=== PATIENT | male | born 1955 | race Caucasian/White ===

== ENCOUNTER → 2016-10-21 | Outpatient (CLI) | payer BC ==
--- NOTE | 2016-10-21 12:46 | US ---
EXAMINATION TYPE: US venous doppler duplex LE LT DATE OF EXAM: 10/21/2016 12:35 PM COMPARISON: NONE CLINICAL HISTORY: M79.672 PAIN IN LT FOOT,S92.405D FX LT GREAT TOE. Left foot pain s/p foot fracture SIDE PERFORMED: Left TECHNIQUE: The lower extremity deep venous system is examined utilizing real time linear array sonog aruna with graded compression, doppler sonography and color-flow sonography. VESSELS IMAGED: External Iliac Vein (EIV) Common Femoral Vein Deep Femoral Vein Greater Saphenous Vein * Femoral Vein Popliteal Vein Small Saphenous Vein * Proximal Calf Veins (* superficial vessels) No popliteal lesion is seen. Left Leg: Negative for DVT, please note PTV's imaged and wnl Results called to Elizabeth at 's office at time of exam IMPRESSION: THIS EXAMINATION IS NEGATIVE FOR DVT WITHIN THE LEFT LEG.
== END | disposition home or self-care (01) ==
LOC: RADUSWWP 12:12
PROVIDERS: ATTEND Orthopaedic Surgery
DX: I80.9 Phlebitis and thrombophlebitis of unspecified site (principal); M79.672 Pain in left foot; S92.405D Nondisplaced unspecified fracture of left great toe, subsequent encounter for fracture with routine healing; X58.XXXD Exposure to other specified factors, subsequent encounter; F17.210 Nicotine dependence, cigarettes, uncomplicated

== ENCOUNTER → 2017-03-18 | Outpatient (CLI) | payer BC | LOC: LABWHC1 10:58 | PROVIDERS: ATTEND Orthopaedic Surgery | DX: S82.62XD Displaced fracture of lateral malleolus of left fibula, subsequent encounter for closed fracture with routine healing (principal) | CPT/HCPCS: 36415; 93005 ==

== ENCOUNTER → 2018-12-06 | Outpatient (CLI) | payer OTHER ==
--- NOTE | 2018-12-06 14:10 | CTL ---
EXAMINATION TYPE: CT Low Dose Lung DATE OF EXAM ORDERED: 12/06/2018 HISTORY: Personal history of tobacco abuse. Lung cancer screening CT DLP: 79.[address] CTDI: 2.2 mGy Automated exposure control for dose reduction was used. SCREENING VISIT: Initial COMPARISON: None TECHNIQUE: Low dose computed tomography scan was performed through the chest at 1 mm thick sections a nd reconstructed images in the coronal plane at [address] DIAGNOSTIC QUALITY: Satisfactory FINDINGS: LUNG NODULES: Present, detailed below: There is a 6 mm solid pulmonary nodule in the right upper lobe on series 4 image 85. There is a calcified benign granulomata within the medial left upper lobe on image 84. Calcified donald gn granuloma within the left upper lobe is also seen posterior laterally on image 61. There is a solid 3 mm pulmonary nodule along the interlobar fissure on series 4 image 161 within the right middle lobe. There is a subsolid vague pulmonary nodule in the left lung apex on image 54 measuring 3 mm. LUNGS: COPD: Severity: Mild Fibrosis: Severity: None Lymph nodes: Nonenlarged Other findings: There is an elongated focal pleural thickening anteriorly along the right middle lobe . Focal pleural thickening and elongated probable scar are seen on series 4 image 87 through 92 along t he right posterior lateral upper lobe. There is minimal dependent bibasilar subsegmental atelectasis. Very minimal peribronchial cuffing may be on the basis of reactive airway disease in this patient wit h underlying COPD with infectious etiology less likely. RIGHT PLEURAL SPACE: Effusion: None Calcification: None Thickening: Minimal along the right middle lobe as marked on image 147. Pneumothorax: None LEFT PLEURAL SPACE: Effusion: None Calcification: None Thickening: None Pneumothorax: None HEART: Heart Size: Nonenlarged Coronary calcification: Severe three-vessel Pericardial effusion: None OTHER FINDINGS: Upper abdomen: Unremarkable unenhanced morphology of the limited upper abdomen. Bony thorax: Moderate degenerative changes of the mid to lower thoracic spine and mild degenerative c hanges of the upper thoracic spine. Supraclavicular region: Unremarkable IMPRESSION: 1. Bilateral pulmonary nodules measuring up to 6 mm on the right. This qualifies as a probably benign finding-LUNG RADS 3-six-month follow-up low dose CT is recommended. 2. Severe three-vessel coronary artery calcifications, a marker of coronary artery disease. FOLLOW UP CT CHEST RECOMMENDATION: Six-month low dose CT thorax CT LUNG RAD: Lung-Rad 3 Probably Benign
== END | disposition home or self-care (01) ==
LOC: RADCTMAIN 13:21
PROVIDERS: ATTEND Family Medicine
DX: Z12.2 Encounter for screening for malignant neoplasm of respiratory organs (principal); R91.8 Other nonspecific abnormal finding of lung field; I25.10 Atherosclerotic heart disease of native coronary artery without angina pectoris; Z87.891 Personal history of nicotine dependence

== ENCOUNTER 2018-12-18 06:17 | Day surgery (SDC) | payer OTHER ==
[~2018-12-18 06:17] MED LIST: DEXAMETHASONE SOD PHOSPHATE 10 MG/ML 1 ML VIAL IV ONE; HEPARIN SODIUM,PORCINE 5,000 UNIT/ML 1 ML VIAL SQ ONE; LACTATED RINGERS 1,000 ML IV SCH; MIDAZOLAM 2 MG/2 ML VIAL IV PRN; ONDANSETRON 4 MG/2 ML VIAL IVP ONE; SCOPOLAMINE 1.5MG/72HR PATCH TRANSDERM ONE; ceFAZolin IN SWFI 2 GM/20 ML SYRINGE IVP ONE
[2018-12-18] MEDS ORDERED: LACTATED RINGERS 1,000 ML IV ONE ×3 (07:06→10:50)
[2018-12-18] MEDS ORDERED: LIDOCAINE 1% 20 ML VIAL (10MG/ML) FOR IV START INTRADERMA ONE (07:07)
--- NOTE | 2018-12-18 07:46 | P.GSHP ---
History of Present Illness H&P Date: 12/18/18 Chief Complaint: Left inguinal hernia This is a 63-year-old male who presents today for laparoscopic robotic-assisted repair of left inguinal hernia. Patient developed a tender mass left groin. Past Medical History Past Medical History: No Reported History Additional Past Medical History / Comment(s): SMOKER History of Any Multi-Drug Resistant Organisms: None Reported Additional Past Surgical History / Comment(s): ORIF ANKLE LEFT @ OA Past Anesthesia/Blood Transfusion Reactions: No Reported Reaction Past Psychological History: No Psychological Hx Reported Smoking Status: Current every day smoker Past Alcohol Use History: Occasional Additional Past Alcohol Use History / Comment(s): SMOKED FOR 30 YRS, 1PPD Past Drug Use History: None Reported - Past Family History Mother Family Medical History: No Reported History Medications and Allergies Home Medications Medication Instructions Recorded Confirmed Type Calcium Carbonate [Calcium] 1 tab PO DAILY 12/13/18 12/13/18 History Cholecalciferol (Vitamin D3) 1 tab PO DAILY 12/13/18 12/13/18 History [Vitamin D3] Allergies Allergy/AdvReac Type Severity Reaction Status Date / Time No Known Allergies Allergy Verified 12/13/18 10:17 Surgical - Exam Vital Signs Temp Pulse Resp BP Pulse Ox 97.8 F 69 18 143/69 99 12/18/18 06:43 12/18/18 06:43 12/18/18 06:43 12/18/18 06:43 12/18/18 06:43 - General well developed, well nourished, no distress - Eyes PERRL - ENT normal pinna - Neck no masses - Respiratory normal expansion - Cardiovascular Rhythm: regular - Abdomen Abdomen: soft, non tender Hernia: inguinal (Reducible left inguinal hernia) Assessment and Plan Assessment: Left and one hernia. We'll perform laparoscopic robotic-assisted repair.
[2018-12-18] MEDS ORDERED: fentaNYL (PF) 50 MCG/ML 2 ML AMP ONE (07:51)
[2018-12-18] MEDS ORDERED: HYDROmorphone (PF) 1 MG/ML ONE (07:51)
[2018-12-18] MEDS ORDERED: ePHEDrine SULFATE/0.9% NACL/PF 50 MG/5 ML SYRINGE IV ONE (07:51)
[2018-12-18] MEDS ORDERED: GLYCOPYRROLATE 0.2 MG/ML 2 ML VIAL ONE (07:51)
[2018-12-18] MEDS ORDERED: LIDOCAINE 1% INJ 10MG/ML (20 ML MDV) ONE (07:51)
[2018-12-18] MEDS ORDERED: MIDAZOLAM 2 MG/2 ML VIAL ONE (07:51)
[2018-12-18] MEDS ORDERED: PROPOFOL 10 MG/ML 20 ML VIAL IV ONE (07:51)
[2018-12-18] MEDS ORDERED: NEOSTIGMINE 1 MG/ML 10 ML VIAL ONE (07:51)
[2018-12-18] MEDS ORDERED: KETOROLAC 30 MG/ML 1 ML VIAL ONE (07:51)
[2018-12-18] MEDS ORDERED: ROCURONIUM BROMIDE 10 MG/ML 10 ML VIAL IV ONE (07:51)
--- NOTE | 2018-12-18 07:54 | P.OP ---
Date of Procedure: 12/18/18 Preoperative Diagnosis: GI bleed Postoperative Diagnosis: Mild diverticulosis Internal hemorrhoids Procedure(s) Performed: Colonoscopy Anesthesia: MAC Surgeon: Octaviano Coronado Pathology: none sent Condition: stable Disposition: PACU Description of Procedure: The patient's placed on the endoscopy table in the lateral position. He received IV sedation. Digital rectal exam was performed which revealed a few internal hemorrhoids. The flexible colonoscope was then placed patient anus and passed throughout the entire colon. The ileocecal valve was visualized. The cecum, ascending and transverse colon. No. The descending colon appeared normal. In the sigmoid colon there was a few scattered diverticula. Scope summer back the rectum this purpose withdrawn. Anus and there were a few internal hemorrhoids. There is no incision any active GI bleed. It is presumed that his bleeding is due to internal hemorrhoids.
[2018-12-18] MEDS ORDERED: BUPIVACAIN-EPI 0.25%-1:200,000 30 ML VIAL SQ ONE (08:26)
[2018-12-18 09:22] VITALS: TEMP 96.9
[2018-12-18 09:23] VITALS: RESP 16
--- NOTE | 2018-12-18 09:33 | P.OP ---
Date of Procedure: 12/18/18 Preoperative Diagnosis: Left inguinal hernia Postoperative Diagnosis: Bilateral inguinal hernia Procedure(s) Performed: Laparoscopic robotic-assisted repair of bilateral inguinal hernia Anesthesia: MIRACLE Surgeon: Octaviano Coronado Pathology: none sent Condition: stable Disposition: PACU Description of Procedure: The patient's placed on the operating table in the supine position. The patient received general anesthesia. The patient's abdomen was prepped and draped in usual sterile fashion. The skin was anesthetized 1% local Xylocaine at the incision sites. Using an 11 blade a skin incision was made at the umbilicus. The fascia was grasped with a Love and then the peritoneal cavity was entered with the Veress needle. Position of the Veress needle was confirmed with a positive drop test. After adequate insufflation a 5 mm trocar was placed into the peritoneal cavity. The Laparoscope was placed the peritoneal cavity. And a robotic 8 mm trocar was placed in the right lateral position and then another 8 mm robotic trochars placed in the left lateral position. The original 5 mm trocar was exchanged for a 12 mm trocar. The patient was placed in reverse Trendelenburg and then the patient was docked to the robot. The patient was noted to have a large left internal hernia and a small right inguinal hernia Next the peritoneum over top of the left inguinal hernia was incised and then using blunt and sharp dissection and electrocautery the hernia sac was dissected free from the floor of the inguinal canal. The hernia sac was completely reduced into the peritoneal cavity. And then using the [employer] information director mesh the hernia was repaired. The peritoneum was then sutured with 20V lock suture. Next the peritoneum over top of the right inguinal hernia was incised and then using blunt and sharp dissection and electrocautery the hernia sac was dissected free from the floor of the inguinal canal. The hernia sac was completely reduced into the peritoneal cavity. And then using the [employer] information director mesh the hernia was repaired. The peritoneum was then sutured with 20V lock suture. The patient was then undocked the robot. The needle was withdrawn from the peritoneal cavity. The umbilical trocar site was closed with 0 Ethibond suture. The skin was closed interrupted 3-0 Monocryl suture. Dermabond dressing was applied. Patient was sent to recovery in stable condition.
[2018-12-18] MEDS: HYDROmorphone 0.5 MG/0.5 ML SYRINGE IVP PRN ×2 (09:39→09:41)
[2018-12-18] MEDS ORDERED: ONDANSETRON 4 MG/2 ML VIAL IVP ONE (09:39)
[2018-12-18 10:52] VITALS: BP 112/64; PULSE 68
== END 2018-12-18 11:18 | disposition home or self-care (01) ==
LOC: OR 06:17
PROVIDERS: ATTEND Surgery
DX: K40.20 Bilateral inguinal hernia, without obstruction or gangrene, not specified as recurrent (principal); F17.200 Nicotine dependence, unspecified, uncomplicated
CPT/HCPCS: 49650; C1781; J2250; J1644; J1100; J2710; J2405; J2001; J3010; J1885; J1170 ×2; J2704; J0690

== ENCOUNTER → 2020-05-11 | Outpatient (CLI) | payer MEDICARE, OTHER ==
[2020-05-11 11:00] LABS: African American GFR (CKD) >90 (>60 ml/min/1.73 sqM); Blood Urea Nitrogen 5 mg/dL (9-20); Non-African American GFR(CKD) >90 (>60 ml/min/1.73 sqM)
--- NOTE | 2020-05-11 13:11 | CT ---
EXAMINATION TYPE: CT chest w con DATE OF EXAM: 05/11/2020 COMPARISON: CT low dose lung screening 12/06/1989 HISTORY: Pulmonary Nodule CT DLP: 225.9 mGycm Automated exposure control for dose reduction was used. CONTRAST: CT scan of the chest is performed with IV Contrast, patient injected with 100 mL of Isovue 300. FINDINGS: LUNGS: There is an unchanged left upper lobe 2 mm pulmonary nodule (4:14), which was somewhat better appreciated on 12/06/2018 CT comparison. There is an unchanged 6 mm solid pulmonary nodule of the righ t upper lobe (4:19). The 3 mm perifissural nodule of the right middle lobe is not seen on current exa mination. Calcified granulomas. Atelectasis and/or scarring of the posterolateral pleura of the right upper lobe (4:20) is unchanged. Lungs are grossly clear. No new concerning parenchymal mass or nodul e identified. No pleural effusion. No pneumothorax. The tracheobronchial tree is patent. MEDIASTINUM/SOFT TISSUES: No axillary, hilar, or mediastinal lymphadenopathy greater than 1 cm. Cardi ac size is normal. Calcified coronary artery disease. No pericardial effusion. No thoracic aortic ane urysm. UPPER ABDOMEN: No adrenal nodule. Incompletely visualized simple appearing left renal cyst. OSSEOUS: Degenerative changes of the spine. IMPRESSION: Bilateral pulmonary nodules, measuring up to 6 mm on the right, are unchanged versus 12/06/2018 CT com parison, and likely benign. Recommend annual CT low dose lung screening.
== END | disposition home or self-care (01) ==
LOC: RADCTMAIN 10:19
PROVIDERS: ATTEND Family Medicine
DX: R91.1 Solitary pulmonary nodule (principal); E78.2 Mixed hyperlipidemia
CPT/HCPCS: 82565; 84520; 71260; 36415; Q9967

== ENCOUNTER → 2021-05-12 | Outpatient (CLI) | payer MEDICARE, OTHER ==
--- NOTE | 2021-05-12 17:10 | CT ---
EXAMINATION TYPE: CT chest wo con DATE OF EXAM: 05/12/2021 COMPARISON: 05/11/2020 HISTORY: Solitary pulmonary nodule. CT DLP: 211.6 mGycm, Automated exposure control for dose reduction was used. CONTRAST: Performed injected with 0 mL of Isovue 300. TECHNIQUE: Axial images were obtained at 5 mm thick sections. Reconstructed images are reviewed on [employer] computer in the coronal plane. FINDINGS: Portion of the thyroid visualized is normal. There is a calcification along the pleural margin of the posterior left upper lung field can be sushila tible with a granuloma. Series 4 image 17. There is an irregular infiltrate within the periphery of the right upper lung field measuring 0.6 x 2 .2 cm. Series 4 image 17. This has enlarged from 0.5 x 0.6 cm. Additional workup with PET CT is recom mended No enlarged mediastinal or hilar adenopathy is evident. The ascending aorta diameter at the level o f the main pulmonary artery is 3.5 cm. The main pulmonary artery diameter at the bifurcation is 2.9 cm. Moderate coronary artery calcification is present. Limited CT sections are obtained through the upper abdomen. Abdomen is essentially unremarkable. IMPRESSIONS: 1. Irregular tree-type density at the right peripheral upper lung field. Additional evaluation with P ET/CT is recommended A Yellow level critical message alert has been initiated for Kemar Swenson DO via the [facility] System on 05/12/2021 5:07 PM. This message alert has been sent to Kemar melendez DO via the preferences provided by the clinician for the receipt of Radiology Critical Findings. Message ID [id number].
== END | disposition home or self-care (01) ==
LOC: RADCTMAIN 11:14
PROVIDERS: ATTEND Family Medicine
DX: R91.8 Other nonspecific abnormal finding of lung field (principal)
CPT/HCPCS: 71250

== ENCOUNTER → 2021-08-06 | Outpatient (CLI) | payer MEDICARE, OTHER ==
--- NOTE | 2021-08-09 08:32 | PE ---
EXAMINATION TYPE: PET CT fusion skull to thigh DATE OF EXAM: 08/06/2021 COMPARISON: Prior chest CT May 12, 2021 and older CTs through December 06, 2018 HISTORY: Solitary pulmonary nodule, abnormal CT . TECHNIQUE: Following the intravenous administration of 10.65 mCi of F-18 FDG, whole body images are performed from the skull base to the midthigh. Images are reviewed on the computer in the coronal, a xial, and sagittal planes. Reconstructed rotating images are created on independent workstation and reviewed on the computer. A localization and attenuation correction CT is performed in conjunction with the PET scan. Blood glucose level = 97. SCAN: Initial Scan FINDINGS: SKULL BASE AND NECK: No areas of abnormal hypermetabolic uptake. CHEST, MEDIASTINUM, AND HILAR REGION: Background mild underlying emphysematous changes redemonstrated . Stable lateral right upper lung scar like opacity from most recent CT measuring 1.8 x 0.9 cm axial image 77 shows mild hypermetabolic uptake, max SUV is less than 2.5 measuring 1.55. Noted increased i n size from 2019 study. No additional areas of abnormal hypermetabolic uptake. No suspicious thoracic adenopathy. ABDOMEN AND PELVIS: Nonspecific uptake in the fundus of stomach. Normal excretion. No adrenal masses. No abnormal hypermetabolic uptake. OSSEOUS STRUCTURES: No abnormal hypermetabolic uptake. OTHER CT: Mild calcified plaque bilateral carotid bulb level. Severe three-vessel coronary artery dada cification and/or stents are redemonstrated. Correlate clinically. Moderate amount of colonic fecal prominence. Mildly enlarged prostate consistent with BPH. Some wall thickening of the bladder presumed outlet obstruction from BPH. Correlate clinically. Moderate to sev ere calcified plaque of the abdominal aorta extends into the iliac branch vessels. Incidental 3.2 cm benign-appearing thin-walled cyst posteriorly left kidney axial image 159. Scoliotic curvature of the spine. IMPRESSION: Enlarging spiculated 1.8 x 0.9 cm minimally hypermetabolic nodule worrisome for neoplasm despite low max SUV, advise cardiothoracic surgical referral to assess for wedge resection.
== END | disposition home or self-care (01) ==
LOC: RADPETMAIN 08:12
PROVIDERS: ATTEND Family Medicine
DX: R91.1 Solitary pulmonary nodule (principal)
CPT/HCPCS: 78815; A9552

== ENCOUNTER → 2022-01-04 | Outpatient (CLI) | payer MEDICARE, OTHER ==
[2022-01-04 12:20] LABS: African American GFR (CKD) >90 (>60 ml/min/1.73 sqM); Blood Urea Nitrogen 8 mg/dL (9-20); Non-African American GFR(CKD) 89 (>60 ml/min/1.73 sqM)
--- NOTE | 2022-01-04 23:35 | CT ---
EXAMINATION TYPE: CT chest w con DATE OF EXAM: 01/04/2022 COMPARISON: CT dated 05/12/2021 HISTORY: f/u nodules CT DLP: 208.7 mGycm Automated exposure control for dose reduction was used. TECHNIQUE: CT scan of the chest is performed with IV Contrast, patient injected with 70cc mL of Isovue 300. FINDINGS: LUNGS: Slightly smaller irregular lesion with spiculated margin, seen at the lateral aspect of the ri ght upper lung lobe, measuring 8 x 14 mm compared to 6 x 22 mm previously. Scattered tiny calcified p ulmonary granulomas. No new suspicious or progressive lung lesion. Patent trachea and main bronchi. N o pleural effusion. MEDIASTINUM: Stable subcentimeter bilateral hilar lymph nodes without interval progression. No pathol ogically enlarged lymph nodes in the chest. Slightly dilated left ventricle. Coronary and arterial at herosclerotic calcifications. No pericardial effusion. OTHER: Left renal cyst, not completely included in the scan. Fecal loading of the visualized portion of the colon. Grossly stable mixed lytic and sclerotic area within the axillary portion of the left seventh rib. Further bone scan assessment can be considered. Degenerative changes of the mid to lower thoracic spine. IMPRESSION: Slightly smaller irregular suspicious lesion in the right upper lung lobe as described above. It is s till not possible to exclude underlying neoplastic process. As previously suggested, thoracic surgica l consultation is advised. No new suspicious or progressive lung lesion. Other findings as described above.
== END | disposition home or self-care (01) ==
LOC: RADCTMAIN 11:34
PROVIDERS: ATTEND Internal Medicine
DX: I25.10 Atherosclerotic heart disease of native coronary artery without angina pectoris (principal); N28.1 Cyst of kidney, acquired; R91.1 Solitary pulmonary nodule
CPT/HCPCS: 82565; 84520; 71260; 36415; Q9967

== ENCOUNTER → 2022-06-07 | Outpatient (CLI) | payer MEDICARE, OTHER ==
[2022-06-07 13:22] LABS: African American GFR (CKD) >90 (>60 ml/min/1.73 sqM); Blood Urea Nitrogen 10 mg/dL (9-20); Non-African American GFR(CKD) >90 (>60 ml/min/1.73 sqM)
--- NOTE | 2022-06-07 14:34 | CT ---
EXAMINATION TYPE: CT chest w con DATE OF EXAM: 06/07/2022 COMPARISON: Most recent CT January 04, 2022 and older studies including PET CT August 06, 2021 HISTORY: Follow up for lung nodule. CT DLP: 448 mGycm. Automated Exposure Control for Dose Reduction was Utilized. TECHNIQUE: CT scan of the thorax is performed following with IV Contrast, patient injected with 70ml mL of Isovue 300. FINDINGS: LUNGS: Stable 1.2 x 0.7 cm spiculated nodule or scar peripheral right upper lobectomy and 17 with joleen ear extension laterally and superiorly redemonstrated. Lesion was ametabolic on PET CT period no new greater than 5 mm pulmonary nodules or masses. There is no pleural effusion or pneumothorax seen. T he tracheobronchial tree is patent. MEDIASTINUM: There are no greater than 1 cm hilar or mediastinal lymph nodes. No cardiomegaly or pe ricardial effusion is seen. Severe three-vessel coronary artery calcification redemonstrated OTHER: Stable mottled sclerotic appearance to the lateral left seventh rib near axial image 34. Sligh t scoliotic curvature redemonstrated in the spine. IMPRESSION: Stable 1.2 x 0.7 cm spiculated nodule or more likely peripheral irregular scarring. No ne w or enlarging nodules or masses noted.
== END | disposition home or self-care (01) ==
LOC: RADCTMAIN 12:28
PROVIDERS: ATTEND Internal Medicine
DX: R91.1 Solitary pulmonary nodule (principal)
CPT/HCPCS: 82565; 84520; 71260; 36415; Q9967

== ENCOUNTER → 2023-05-09 | Outpatient (CLI) | payer MEDICARE, OTHER ==
--- NOTE | 2023-05-09 13:17 | XR ---
EXAMINATION TYPE: XR knee complete RT DATE OF EXAM: 05/09/2023 COMPARISON: NONE HISTORY: 67-year-old male medial knee pain after injury 2 weeks ago. [id number] RT KNEE PAIN, IN JURY RT KNEE TECHNIQUE: 3 views FINDINGS: No knee joint effusion. Extensor mechanism appears intact. Popliteal artery calcifications. No acute fracture, subluxation, dislocation seen. IMPRESSION: No acute osseous abnormality seen.
== END | disposition home or self-care (01) ==
LOC: RADXRYALE 09:52
PROVIDERS: ATTEND Family Medicine
DX: S80.911A Unspecified superficial injury of right knee, initial encounter (principal); M25.561 Pain in right knee